=== PATIENT | male | born 1995 | race African-American/Black ===

== ENCOUNTER → 2016-04-20 04:06 | Emergency (ER) | payer OTHER ==
[~2016-04-20 04:06] MED LIST: BP MED; PROCARDIA XL30 MG
== END | disposition left against medical advice (07) ==
LOC: CED 05:50
DX: Z53.21 Procedure and treatment not carried out due to patient leaving prior to being seen by health care provider (principal)

== ENCOUNTER 2016-06-23 13:18 | Emergency (ER) | payer OTHER ==
[~2016-06-23 13:18] MED LIST changes: -PROCARDIA XL30 MG
== END 2016-06-23 13:23 | disposition home or self-care (01) ==
LOC: SED 13:18
DX: M54.5 Low back pain (principal); I10 Essential (primary) hypertension; F17.200 Nicotine dependence, unspecified, uncomplicated
CPT/HCPCS: 99282

== ENCOUNTER 2016-07-24 17:08 | Emergency (ER) | payer OTHER ==
--- NOTE | ~2016-07-24 | CR72 ---
[facility] A Service of [facility] RADIOLOGY TEXT RESULTS PATIENT: ALFRED POLLARD LOCATION: CFTX : [birth year] UNIT #: [id number] AGE: [address]: JUAN J SMITH APRN SEX: M ORDER DR: [id number] [facility] [address] [place], [place] [address] [id number] MR#: [id number] Acc #: [id number] NAME: ALFRED POLLARD : 1995 SEX: M STUDY DATE/TIME: 07/24/2016 19:37 UNIT: CFCO ROOM: STUDY DESCRIPTION: CR Chest Single View Portable Attending Physician: Juan J Smith Aprn Ordering Physician: Juan J Smith Aprn Primary Care Physician: [facility] MEDICAL IMAGING REPORT This report is preliminary unless electronic signature is present EXAM Chest x-ray, single frontal portable. HISTORY Cough and chest congestion for 2 days, no history Single frontal portable view of the chest timed 19:37 07/24/2016 reviewed. The patient does not have comparison in this institution. Cardiac silhouette size is normal. No pleural effusion, pneumothorax or acute congestive failure. No acute-appearing parenchymal infiltrate IMPRESSION Normal chest x-ray. Dictated by... Dayana Salinas M.D. THIS IS AN ELECTRONICALLY VERIFIED REPORT Dayana Salinas M.D. at 07/25/2016 2:29 PM MARLENE/victor manuel TD: 07/25/2016 03:41 JOB #: [id number] MEDICAL IMAGING REPORT Page 1 of 1 COPY
== END 2016-07-24 21:19 | disposition home or self-care (01) ==
LOC: CED 17:08 → CFTX 17:08
DX: J45.901 Unspecified asthma with (acute) exacerbation (principal); J20.9 Acute bronchitis, unspecified; J45.909 Unspecified asthma, uncomplicated; I10 Essential (primary) hypertension; F17.210 Nicotine dependence, cigarettes, uncomplicated
CPT/HCPCS: 71010; 94640; 99283

== ENCOUNTER 2016-10-09 15:08 | Emergency (ER) | payer OTHER ==
--- NOTE | ~2016-10-09 | CT4 ---
[facility] A Service of [facility] RADIOLOGY TEXT RESULTS PATIENT: ALFRED POLLARD LOCATION: SED : 96 UNIT #: [id number] AGE: [address]: JAMEEL BAIRES SEX: M ORDER DR: [id number] [place] [address] [id number] E MR#: [id number] Acc #: [id number] NAME: ALFRED POLLARD : 1995 SEX: M STUDY DATE/TIME: 10/09/2016 17:14 UNIT: SED ROOM: STUDY DESCRIPTION: CT Abd and Pelv Wo Cont Attending Physician: Jameel Baires Ordering Physician: Jameel Baires Primary Care Physician: [facility] IMAGING REPORT This report is preliminary unless electronic signature is present. EXAM CT abdomen and pelvis without contrast INDICATION Bloody stools. Constipation for the past [address] of the abdomen and pelvis. This CT exam was performed with one or more of the following radiation dose reduction techniques: automatic exposure control, adjustment of mA and/or kV according to patient size, and iterative reconstruction. COMPARISON None. FINDINGS ABDOMEN WITHOUT CONTRAST: Included lung bases are clear. The liver, spleen, kidneys, adrenal glands, pancreas, and gallbladder show an unremarkable unenhanced appearance. Bowel loops are nondilated. Appendix is not well seen on this study. It may be present in the deep right lower quadrant, but that is not definitive. No appreciable pericecal inflammation. No abdominal fluid collection. PELVIS WITHOUT CONTRAST: No appreciable pelvic mass or fluid. No aggressive appearing bone lesion. IMPRESSION No clearly acute finding in the abdomen or pelvis. [facility] A Service [facility] RADIOLOGY TEXT RESULTS PATIENT: ALFRED POLLARD LOCATION: SED : 96 UNIT #: [id number] AGE: [address]: JAMEEL BAIRES SEX: M ORDER DR: Dictated by... Marquez Treviño M.D. THIS IS AN ELECTRONICALLY VERIFIED REPORT Marquez Treviño M.D. at 10/15/2016 8:54 AM VANDANA/victor manuel TD: 10/09/2016 23:34 JOB #: [id number] MEDICAL IMAGING REPORT Page 1 of 1
[2016-10-09] MEDS ORDERED: PROCARDIA XL30 MG (15:19)
[2016-10-09 17:00] LABS: BASOPHIL# 0.1 X10e3 (0-0.3); BASOPHIL% 0.7 % (0-2.5); EOSINOPHIL# 0.2 X10e3 (0-0.7); HEMOGLOBIN 13.1 gm/dL (13.0-16.0); LYMPHOCYTE# 1.5 X10e3 (1.0-3.5); LYMPHOCYTE% 18.4 % (17.0-45.0); MEAN CELL VOLUME 64.6 FL (83-96); MEAN CORPUSCULAR HEMOGLOBIN 20.7 PG (28-34); MEAN PLATELET VOLUME 9.4 FL (6.5-11.5); MONOCYTE# 0.4 X10e3 (0-1.0); MONOCYTE% 4.4 % (3.0-12.0); NEUTROPHIL# 6.2 X10e3 (1.5-7.1); NEUTROPHIL% 74.5 % (40-75); PLATELET COUNT 173 X10e3 (140-420); RED BLOOD COUNT 6.35 X10e (3.90-5.60); RED CELL DISTRIBUTION WIDTH 15.2 % (11.0-15.5); WHITE BLOOD COUNT 8.3 X10e3 (4.0-10.5)
[2016-10-09 17:03] LABS: DIFF IND NO
[2016-10-09 17:04] LABS: URINE SOURCE CLEAN CATCH
[2016-10-09 17:06] LABS: MICRO INDICATED? NO; URINE APPEARANCE CLEAR; URINE BILIRUBIN NEG (NEG); URINE BLOOD NEG (NEG); URINE COLOR YELLOW; URINE GLUCOSE NEG (NORM); URINE KETONE NEG (NEG); URINE LEUKOCYTE ESTERASE NEG (NEG); URINE NITRATE NEG (NEG); URINE PROTEIN NEG (NEG)
[2016-10-09 17:18] LABS: ALBUMIN SERUM 4.9 g/dL (3.5-5.0); BILIRUBIN,TOTAL 1.3 mg/dL (0.2-2.0); BUN/CREATININE RATIO 22.5; CALCIUM SERUM 9.2 mg/dL (8.4-10.2); CREATININE SERUM 0.8 mg/dL (0.6-1.4); GLOM FILT RATE Estimated 150.2 mL/min (>60); POTASSIUM 3.9 mmol/L (3.5-5.1); PROTEIN TOTAL SERUM 6.7 g/dL (6.0-8.3)
== END 2016-10-09 17:52 | disposition home or self-care (01) ==
LOC: SED 15:08
PROVIDERS: Nurse Practitioner
DX: R10.11 Right upper quadrant pain (principal); R10.31 Right lower quadrant pain; R10.32 Left lower quadrant pain; J45.909 Unspecified asthma, uncomplicated; I10 Essential (primary) hypertension; Z88.8 Allergy status to other drugs, medicaments and biological substances
CPT/HCPCS: 36415; 74176; 80053; 81003; 82270; 85025; 96361; 96374; 99284; C9113